=== PATIENT | male | born 2000 | race Caucasian/White ===

== ENCOUNTER 2022-05-26 15:37 | Emergency (ER) | payer OTHER, SELFPAY ==
--- NOTE | ~2022-05-26 | CT_ITS ---
EXAMINATION: CT ABDOMEN AND PELVIS WITH CONTRAST CLINICAL INFORMATION: Right lower quadrant abdominal pain. Rule out appendicitis. COMPARISON: None available. TECHNIQUE: Multidetector volumetric images were obtained from the superior aspect of the liver through the pubic symphysis following administration 85 mL of Omnipaque 350 intravenous contrast. Sagittal and coronal reformatted images were obtained on the technologist's workstation. Oral contrast: No This CT examination was performed using dose optimization techniques as appropriate, variously including the following: *Automated exposure control *Adjustment of mA and/or kV according to patient size (this includes techniques or standardized protocols for targeted exams where dose is matched to indication/reason for exam; i.e. extremities or head) *Use of iterative reconstruction technique DLP: 283 mGy-cm FINDINGS: LUNG BASES: The visualized lung bases are unremarkable. LIVER, GALLBLADDER, AND BILIARY TREE: The liver is normal in size, shape, and attenuation. No focal hepatic lesion or biliary ductal dilatation is present. The gallbladder is unremarkable with no evidence of radiopaque gallstones, gallbladder wall thickening, or obvious pericholecystic inflammatory changes. PANCREAS: Unremarkable. SPLEEN: Unremarkable. ADRENAL GLANDS: Unremarkable. KIDNEYS AND URETERS: The kidneys are normal in size and shape. There is a 3 mm calculus at the right ureterovesical junction which produces mild right hydroureteronephrosis as well as a mildly delayed right nephrogram when compared to the contralateral side. No significant perinephric or periureteral fat stranding. No additional right renal or ureteral calculi are identified. There is a 2 mm calculus within a calyx at the lower pole of the left kidney. BLADDER: Unremarkable. GASTROINTESTINAL TRACT: The small and large bowel are unremarkable. The appendix is unremarkable. No intraperitoneal free air. Trace free fluid, likely physiologic. ABDOMINAL WALL: No significant hernia is appreciated. LYMPH NODES: Normal. VASCULAR: Unremarkable. PELVIC VISCERA: The uterus and adnexa are unremarkable. OSSEOUS STRUCTURES: Unremarkable. CT/CT abdomen pelvis w IV con IMPRESSION: 1. A 3 mm calculus at the right ureterovesical junction produces mild right hydroureteronephrosis and a delayed right nephrogram. 2. A 2 mm nonobstructing calculus in the left kidney. 3. Normal appendix. Fleischner guidelines were followed.
[2022-05-26 15:57] VITALS: BP 120/73; PULSE 71; RESP 18; TEMP 37; O2SAT 96; BMI 19.1
--- NOTE | 2022-05-26 16:00 | ED.ABDPAIN ---
HPI - Abdominal Pain General Chief Complaint: Abdominal Pain Stated Complaint: abdominal pain, vomiting Time Seen by Provider: 05/26/22 17:48 Source: patient Mode of arrival: ambulatory Limitations: no limitations History of Present Illness HPI narrative: This is a 21-year-old transgender patient who presents with right-sided abdominal pain which began today multiple episodes of vomiting with no diarrhea, urinary symptoms, fevers or chills. Related Data Previous Rx's Medication Instructions Recorded cefuroxime axetil 250 mg tablet 250 mg PO BID #14 tabs 05/26/22 ibuprofen 600 mg tablet 600 mg PO Q8H PRN pain #30 tabs 05/26/22 ondansetron 4 mg disintegrating 4 mg PO Q6H PRN nausea and 05/26/22 tablet vomiting #10 tabs oxycodone 5 mg tablet 5 mg PO Q8H PRN pain #5 tabs 05/26/22 tamsulosin 0.4 mg capsule (Flomax) 0.4 mg PO DAILY #30 caps 05/26/22 Allergies Allergy/AdvReac Type Severity Reaction Status Date / Time No Known Allergies Allergy Verified 05/26/22 16:00 Review of Systems Review of Systems Yes all other systems are reviewed and are negative Constitutional: Reports no additional constitutional complaints, Denies body ache(s), Denies chills, Denies fever(s), Denies headache(s) and Denies weakness Eyes: Reports no additional eye complaints and Denies change in vision Reports system reviewed and no additional complaints, except as documented, Denies dizziness, Denies headache(s), Denies nasal congestion, Denies nasal discharge and Denies neck pain Cardiovascular: Reports no additional cardiovascular complaints, Denies chest pain, Denies leg edema and Denies dyspnea Respiratory: Reports no additional respiratory complaints, Denies cough and Denies dyspnea Gastrointestinal: Reports no additional gastrointestinal complaints, Reports abdominal pain, Denies diarrhea, Reports nausea and Reports vomiting Genitourinary: Denies urinary incontinence Musculoskeletal: Reports no additional musculoskeletal complaints, Denies back pain, Denies arthralgias, Denies joint swelling, Denies neck pain, Denies numbness and Denies tingling Skin/Breast: Reports system reviewed and no additional complaints, except as docu and Denies rash Reports system reviewed and no additional complaints, except as documented, Denies dizziness, Denies headache(s), Denies numbness, Denies tingling and Denies weakness [facility] Past Medical History Attestation statement: The following information was validated with the patient. Source: old records reviewed and nursing notes reviewed Social History Social History Alcohol intake: current Alcohol intake frequency: holidays/special occasions only Smoked in Last 30 Days: No Use of substances other than those prescribed or required for medical reasons: No Advance Directives: No Advance Directives Information Provided: No Physical Exam ED Vital Signs: Vital Signs - 24 hr 05/26/22 15:57 05/26/22 19:12 Temperature 98.6 F Pulse Rate 71 66 Respiratory Rate 18 15 Blood Pressure 120/73 131/76 Pulse Oximetry 96 99 Oxygen Delivery Method Room Air Room Air BMI result Body Mass Index 19.1 Const Other: In pain, vomiting Limitations: no limitations HENMT Head: Yes normal to inspection Ears: hearing grossly normal bilaterally Eyes General: appearance normal, both eyes and all related structures Pupils: Equal, round and reactive pupils present Neck Neck: Yes normal visual inspection Chest Chest palpation & inspection: normal inspection of the chest Resp Effort & Inspection: normal respiratory effort GI Inspection: Yes normal to inspection Palpation (GI): Soft to palpation and Tenderness to palpation present (GI) in the RLQ and in the RUQ General: Yes no CVA tenderness Back/Spine/Pelvis Back: no CVA tenderness Thoracic/Lumbar Spine: thoracic and lumbar spine normal to inspection Skin General skin exam: no rashes or lesions noted Neuro General: moves all extremities Cranial nerves: Yes Equal, round and reactive pupils present Cognition (Neuro): normal cognition Gait exam (Neuro): Normal gait present Extrem General: Yes normal to inspection, Yes no pedal edema and Yes no calf tenderness Course Course Course Narrative: This is a rapid medical exam. Deferred additional HPI, ROS, PE to primary provider. 21 yo transgender female to male here with complaints of right sided abdominal pain, nausea/vomiting. Currently on testerone, has female system. Will obtain UA, labs, viral testing. VSS Reevaluation(s) Reevaluation #1: 1930-Labs show leukocytosis. Likely secondary to vomiting. CT of the abdomen and pelvis shows a right 3 mm stone at the UVJ with mild hydroureternephrosis. Patient's nausea is improved. No additional vomiting. Patient still having some discomfort so I will give him Toradol and reassess. UA is pending. Patient will need p.o. trial and if feeling better can be discharged home with Urology follow-up Reevaluation #2: 2020-UA shows mild infection. I do not believe that this patient has an infected stone. His pain is well controlled and he is tolerating water with no additional vomiting. He feels comfortable going home and following up outpatient with Urology. I did review worrisome signs and symptoms with the patient and when to return to the emergency room. Comfortable plan for discharge home. Medical Decision Making Medical Decision Making [facility] Narrative: 21-year-old transgender patient here with right-sided abdominal pain and multiple episodes of vomiting which began today. On exam patient with tenderness the right side of the abdomen with no rebound or guarding. Obtain labs, UA, CT Differential Diagnosis Differential Diagnoses: The differential diagnosis associated with the presentation includes Appendicitis, renal colic, cholecystitis, ovarian torsion Lab Data [facility] Lab Attestation statement: I reviewed the patient's lab results. 05/26/22 16:20 05/26/22 16:20 Labs: Lab Results 05/26/22 05/26/22 05/26/22 Range/Units 16:20 16:20 16:20 WBC 21.5 H (4.8-10.8) X10*3/uL RBC 5.29 (4.60-5.80) X10*6/uL Hgb 15.5 (14.0-18.0) g/dl Hct 44.8 (42.0-52.0) % MCV 84.7 (80.0-98.0) fL MCH 29.3 (27.0-33.0) pg MCHC 34.6 (31.0-36.0) g/dl RDW 11.9 (11.0-16.0) % Plt Count 343 (160-400) X10*3/uL MPV 9.5 (9.4-12.4) fL Immature Gran % (Auto) 0.6 H (0.0-0.4) % Neut % (Auto) 87.6 H (45-73) % Lymph % (Auto) 4.7 L (20-40) % Gaines % (Auto) 6.9 (2-11) % Eos % (Auto) 0.0 (0-4) % Baso % (Auto) 0.2 (0-2) % Lymph # (Auto) 1.0 L (1.2-4.9) X10*3/uL Gaines # (Auto) 1.5 H (0.1-1.2) X10*3/uL Eos # (Auto) 0.0 (0.0-0.4) X10*3/uL Baso # (Auto) 0.1 (0.0-0.2) X10*3/uL Abs Immat Gran (auto) 0.12 H (0.00-0.03) X10*3/uL Absolute Neuts (auto) 18.9 H (2.0-8.3) x10*3/uL Absolute Nucleated RBC 0.000 (0.0-0.012) X10*3/uL Nucleated RBC % (auto) 0.0 (0.0-0.2) /100WBC Sodium 142 (135-145) mmol/L Potassium 4.3 (3.3-5.1) mmol/L Chloride 108 (96-108) mmol/L Carbon Dioxide 21 L (22-29) mmol/L Anion Gap 17 (12-20) BUN 17 H (9-16) mg/dL Creatinine 1.27 (0.5-1.4) mg/dL Estim Creat Clear Calc 68.4 Estimated GFR > 60 Random Glucose 110 (60-115) mg/dL Calcium 10.2 (8.4-10.2) mg/dL Total Bilirubin 0.9 (0.0-1.0) mg/dL Direct Bilirubin 0.3 (0.0-0.5) mg/dL AST 31 (5-37) U/L ALT 18 (0-40) U/L Alkaline Phosphatase 63 (39-117) U/L Total Protein 7.4 (6.5-8.0) g/dL Albumin 5.0 (3.5-5.0) g/dL Urine Color Urine Appearance Urine pH (5.0-9.0) Ur Specific Roy (1.005-1.025) Urine Protein (Neg-Trace) mg/dL Urine Glucose (UA) (Negative) mg/dL Urine Ketones (Negative) mg/dL Urine Blood (Negative) Urine Nitrite (Negative) Ur Leukocyte Esterase (Negative) Urine RBC (0-2) /HPF Urine WBC (0-5) /HPF Ur Squamous Epith Cells (0-2) /HPF Urine Bacteria (None Seen) Hyaline Casts (0-2) /LPF Urine Test (NEGATIVE) COVID-19 (FRANCISCO J) Negative (Negative) COVID-19 Clin Com See Note Ref Lab Test Result 05/26/22 05/26/22 05/26/22 Range/Units 16:20 19:20 19:20 WBC (4.8-10.8) X10*3/uL RBC (4.60-5.80) X10*6/uL Hgb (14.0-18.0) g/dl Hct (42.0-52.0) % MCV (80.0-98.0) fL MCH (27.0-33.0) pg MCHC (31.0-36.0) g/dl RDW (11.0-16.0) % Plt Count (160-400) X10*3/uL MPV (9.4-12.4) fL Immature Gran % (Auto) (0.0-0.4) % Neut % (Auto) (45-73) % Lymph % (Auto) (20-40) % Gaines % (Auto) (2-11) % Eos % (Auto) (0-4) % Baso % (Auto) (0-2) % Lymph # (Auto) (1.2-4.9) X10*3/uL Gaines # (Auto) (0.1-1.2) X10*3/uL Eos # (Auto) (0.0-0.4) X10*3/uL Baso # (Auto) (0.0-0.2) X10*3/uL Abs Immat Gran (auto) (0.00-0.03) X10*3/uL Absolute Neuts (auto) (2.0-8.3) x10*3/uL Absolute Nucleated RBC (0.0-0.012) X10*3/uL Nucleated RBC % (auto) (0.0-0.2) /100WBC Sodium (135-145) mmol/L Potassium (3.3-5.1) mmol/L Chloride (96-108) mmol/L Carbon Dioxide (22-29) mmol/L Anion Gap (12-20) BUN (9-16) mg/dL Creatinine (0.5-1.4) mg/dL Estim Creat Clear Calc Estimated GFR Random Glucose (60-115) mg/dL Calcium (8.4-10.2) mg/dL Total Bilirubin (0.0-1.0) mg/dL Direct Bilirubin (0.0-0.5) mg/dL AST (5-37) U/L ALT (0-40) U/L Alkaline Phosphatase (39-117) U/L Total Protein (6.5-8.0) g/dL Albumin (3.5-5.0) g/dL Urine Color Yellow Urine Appearance Clear Urine pH 8.5 (5.0-9.0) Ur Specific Roy >= 1.030 H (1.005-1.025) Urine Protein Negative (Neg-Trace) mg/dL Urine Glucose (UA) Negative (Negative) mg/dL Urine Ketones Negative (Negative) mg/dL Urine Blood Large (3+) H (Negative) Urine Nitrite Negative (Negative) Ur Leukocyte Esterase Small (1+) H (Negative) Urine RBC >20 H (0-2) /HPF Urine WBC 11-20 H (0-5) /HPF Ur Squamous Epith Cells 3-5 (0-2) /HPF Urine Bacteria Trace (None Seen) Hyaline Casts 0-2 (0-2) /LPF Urine Test NEGATIVE (NEGATIVE) COVID-19 (FRANCISCO J) (Negative) COVID-19 Clin Com Ref Lab Test Result SEE NOTE Independent Interpretation I performed an independent interpretation of an: CT Scan Interpretation: I independently reviewed the CT scan of the abdomen and pelvis to agree with radiologist's report. Radiology Impression Discussion of test interpretation with radiology: I have reviewed the radiologist's reading. Radiologist Impression: FINDINGS: LUNG BASES: The visualized lung bases are unremarkable.? LIVER, GALLBLADDER, AND BILIARY TREE: The liver is normal in size, shape, and attenuation. No focal hepatic lesion or biliary ductal dilatation is present. The gallbladder is unremarkable with no evidence of radiopaque gallstones, gallbladder wall thickening, or obvious pericholecystic inflammatory changes.? PANCREAS: Unremarkable.? SPLEEN: Unremarkable.? ADRENAL GLANDS: Unremarkable.? KIDNEYS AND URETERS: The kidneys are normal in size and shape. There is a 3 mm calculus at the right ureterovesical junction which produces mild right hydroureteronephrosis as well as a mildly delayed right nephrogram when compared to the contralateral side. No significant perinephric or periureteral fat stranding. No additional right renal or ureteral calculi are identified. There is a 2 mm calculus within a calyx at the lower pole of the left kidney.? BLADDER: Unremarkable.? GASTROINTESTINAL TRACT: The small and large bowel are unremarkable. The appendix is unremarkable. No intraperitoneal free air. Trace free fluid, likely physiologic. ABDOMINAL WALL: No significant hernia is appreciated.? LYMPH NODES: Normal. VASCULAR: Unremarkable. PELVIC VISCERA: The uterus and adnexa are unremarkable.? OSSEOUS STRUCTURES: Unremarkable.? CT/CT abdomen pelvis w IV con IMPRESSION: 1.? A 3 mm calculus at the right ureterovesical junction produces mild right hydroureteronephrosis and a delayed right nephrogram. 2.? A 2 mm nonobstructing calculus in the left kidney. 3.? Normal appendix. ? Fleischner guidelines were followed. Medications Administered Discontinued Medications Generic Name Dose Route Start Last Admin Trade Name Freq PRN Reason Stop Dose Admin Sodium Chloride 1,000 mls @ 999 mls/hr 05/26/22 17:49 05/26/22 19:11 Ns IV 05/26/22 18:49 Infused .Q1H1M STA Infusion Iohexol 100 ml 05/26/22 18:25 05/26/22 18:26 Iohexol 350 Mg/Ml 100 Ml Infus..Btl IV 05/26/22 18:26 85 ml ONCE ONE Administration Ketorolac Tromethamine 30 mg 05/26/22 19:30 05/26/22 19:48 Ketorolac Tromethamine 30 Mg/Ml Vial IVPUSH 05/26/22 19:31 30 mg ONCE ONE Administration Morphine Sulfate 4 mg 05/26/22 17:49 05/26/22 18:07 Morphine Sulfate 4 Mg/Ml Cartridge IVPUSH 05/26/22 17:50 4 mg ONCE ONE Administration Protocol Ondansetron HCl 4 mg 05/26/22 17:49 05/26/22 18:07 Ondansetron Hcl 4 Mg/2 Ml Vial IVPUSH 05/26/22 17:50 4 mg ONCE ONE Administration Discharge Plan Discharge Clinical Impression: Calculus of kidney, Acute UTI Patient Disposition: Home, Self-Care Instructions: Kidney Stones (ED) Additional Instructions: You have a kidney stone on the right side. Please follow-up with urology. You do also have a mild urinary tract infection. Increase fluids at home Take the medications as prescribed Return for worsening pain, intractable vomiting, fever greater than 100.4 Prescriptions: New tamsulosin [Flomax] 0.4 mg capsule 0.4 mg PO DAILY Qty: 30 0RF ondansetron 4 mg tablet,disintegrating 4 mg PO Q6H PRN (Reason: nausea and vomiting) Qty: 10 0RF ibuprofen 600 mg tablet 600 mg PO Q8H PRN (Reason: pain) Qty: 30 0RF oxycodone 5 mg tablet 5 mg PO Q8H PRN (Reason: pain) Qty: 5 0RF Rx Instructions: Partial Fill upon patient request. cefuroxime axetil 250 mg tablet 250 mg PO BID Qty: 14 0RF Referrals: Beata Ott MD [Physician] - 1 week Stand Alone Forms: Work/School Release Interventions: ED Discharge Assessment Last Done: 05/26/22 20:27 Discharge Date/Time: 05/26/22 20:30
[2022-05-26 16:26] LABS: MANUAL DIFF FLAG NO
[2022-05-26 16:32] LABS: Basophils Absolute Auto 0.1 X10*3/uL (0.0-0.2); Basophils Percent Auto 0.2 % (0-2); Hematocrit 44.8 % (42.0-52.0); Hemoglobin 15.5 g/dl (14.0-18.0); Imm Gran Abs Auto 0.12 X10*3/uL (0.00-0.03); Imm Gran Pct Auto 0.6 % (0.0-0.4); Lymphocytes Percent Auto 4.7 % (20-40); Mean Corpuscular HGB Conc 34.6 g/dl (31.0-36.0); Mean Corpuscular Hemoglobin 29.3 pg (27.0-33.0); Mean Corpuscular Volume 84.7 fL (80.0-98.0); Mean Platelet Volume 9.5 fL (9.4-12.4); Monocytes Absolute Auto 1.5 X10*3/uL (0.1-1.2); Monocytes Percent Auto 6.9 % (2-11); Neutrophils Absolute Auto 18.9 x10*3/uL (2.0-8.3); Neutrophils Percent Auto 87.6 % (45-73); Platelet Count 343 X10*3/uL (160-400); Red Blood Count 5.29 X10*6/uL (4.60-5.80); Red Cell Distribution Width 11.9 % (11.0-16.0); White Blood Count 21.5 X10*3/uL (4.8-10.8)
[2022-05-26 16:40] LABS: IDNOW Serial# 08D9AD1C
[2022-05-26 16:41] LABS: Alanine Aminotransferase 18 U/L (0-40); Alkaline Phosphatase 63 U/L (39-117); Anion Gap 17 (12-20); Aspartate Amino Transferase 31 U/L (5-37); Bilirubin Direct 0.3 mg/dL (0.0-0.5); Bilirubin Total 0.9 mg/dL (0.0-1.0); Blood Urea Nitrogen 17 mg/dL (9-16); COVID-19 Test Negative (Negative); Calcium 10.2 mg/dL (8.4-10.2); Carbon Dioxide 21 mmol/L (22-29); Chloride 108 mmol/L (96-108); Creatinine Clr Calc Pharmacy 68.4; Estimated Glomerular Filt Rate > 60; Glucose Random 110 mg/dL (60-115); Potassium 4.3 mmol/L (3.3-5.1); Sodium 142 mmol/L (135-145); Total Protein 7.4 g/dL (6.5-8.0)
[2022-05-26] MEDS: ondansetron HCL 4 MG/2 ML VIAL IVPUSH (18:07)
[2022-05-26] MEDS: Morphine Sulfate 4 MG/ML CARTRIDGE IVPUSH (18:07)
[2022-05-26] MEDS: 0.9 % Sodium Chloride 1,000 ML 999 ML IV (18:07)
[2022-05-26] MEDS: iohexoL 350 MG/ML 100 ML INFUS..BTL IV (18:26)
[2022-05-26 19:12] VITALS: BP 131/76; PULSE 66; RESP 15; O2SAT 99
[2022-05-26 19:29] LABS: Appearance Urine Clear; Color Urine Yellow; Glucose Urine UA Negative (Negative); Leukocyte Esterase Urine Small (1+) (Negative); Nitrite Urine Negative (Negative); PH 8.5 (5.0-9.0); UMIC TRIGGER UACC YES; Urine Blood Large (3+) (Negative); Urine Ketones Negative (Negative); Urine Protein Negative (Neg-Trace)
[2022-05-26 19:31] LABS: UPreg QC Valid YES; Urine Pregnancy NEGATIVE (NEGATIVE)
[2022-05-26 19:36] LABS: Bacteria Urine Trace (None Seen); Hyaline Casts Urine 0-2 /LPF (0-2); RBC Urine >20 /HPF (0-2); UACC Culture Trigger YES
[2022-05-26 19:41] LABS: Specific Gravity - Urine >= 1.030 (1.005-1.025)
[2022-05-26] MEDS: Ketorolac Tromethamine 30 MG/ML VIAL IVPUSH (19:48)
== END 2022-05-26 20:30 | disposition home or self-care (01) ==
PROVIDERS: Nurse Practitioner Family; Emergency Provider Internal Medicine
DX: N20.0 Calculus of kidney (principal); N39.0 Urinary tract infection, site not specified; R10.31 Right lower quadrant pain; Z20.822 Contact with and (suspected) exposure to COVID-19; Z20.828 Contact with and (suspected) exposure to other viral communicable diseases; Z79.899 Other long term (current) drug therapy
CPT/HCPCS: 74177; 80048; 80076; 81001; 81025; 85025; 87086; 87635; 96361; 96374; 96375; 99284; J1885; J2270; J2405; Q9967

== ENCOUNTER 2023-05-08 16:42 | Emergency (ER) | payer OTHER, SELFPAY ==
--- NOTE | ~2023-05-08 | XR_ITS ---
EXAMINATION: XR ANKLE, LEFT CLINICAL INFORMATION: Localized pain and swelling lateral malleolus COMPARISON: None available. TECHNIQUE: AP, lateral, and mortise views of the left ankle. FINDINGS: There is soft tissue swelling laterally. No fracture. Alignment is anatomic. No erosions. Joint spaces are maintained. XR/XR ankle LT min 3V IMPRESSION: Soft tissue swelling laterally. No fracture.
--- NOTE | 2023-05-08 17:02 | ED_ITS ---
HPI - Extremity Injury (Lower) General Chief Complaint: Extremity Injury, Lower Stated Complaint: fell, ankle broken? Time Seen by Provider: 05/08/23 18:00 Source: patient Mode of arrival: wheelchair Limitations: no limitations History of Present Illness HPI Narrative: Patient is a 22-year-old who presents to the emergency department for evaluation of Traumatic left ankle pain, reports way sitting on the toilet, felt put to become numb. Upon standing, felt a sudden crack and sudden pain. Has localized swelling to the left lateral malleolus, pain upon palpation. Related Data Previous Rx's Medication Instructions Recorded cefuroxime axetil 250 mg tablet 250 mg PO BID #14 tabs 05/26/22 ibuprofen 600 mg tablet 600 mg PO Q8H PRN pain #30 tabs 05/26/22 ondansetron 4 mg disintegrating 4 mg PO Q6H PRN nausea and 05/26/22 tablet vomiting #10 tabs oxycodone 5 mg tablet 5 mg PO Q8H PRN pain #5 tabs 05/26/22 tamsulosin 0.4 mg capsule (Flomax) 0.4 mg PO DAILY #30 caps 05/26/22 Allergies Allergy/AdvReac Type Severity Reaction Status Date / Time No Known Allergies Allergy Verified 05/08/23 17:02 Review of Systems Review of Systems: Yes all other systems are reviewed and are negative [facility] Past Medical History Attestation statement: The following information was validated with the patient. Source: old records reviewed Social History Social History Alcohol intake: current Alcohol intake frequency: holidays/special occasions only Physical Exam Vital Signs: Vital Signs: Last Vital Signs Temp 98.3 F 05/08/23 17:03 Pulse 67 05/08/23 17:03 Resp 16 05/08/23 17:03 BP 133/54 L 05/08/23 17:03 Pulse Ox 97 05/08/23 17:03 O2 Del Method Room Air 05/08/23 17:03 BMI result Body Mass Index 22.6 Appearance: Alert.?Oriented to person, place and time. No acute distress.?Normal affect. Neck: Normal inspection.? Neck supple.?? CVS: Heart sounds normal. Normal heart rate and rhythm.? Pulses normal.?? Respiratory: No respiratory distress.? Lung sounds clear to auscultation bilaterally?? Abdomen: Soft and non-tender. Normoactive bowel sounds Skin: Skin warm and dry.? Normal skin color.? Extremities: localized swelling L lateral malleolus, no deformity, TTP, 2+ DP/PT Neuro: Moves all extremities spontaneously. Sensation intact bilaterally. Ambulates with antalgic steady gait. Course Course Course Narrative: This is an RME: Additional HPI, ROS, PE not included below will be deferred to primary provider. Patient is a 22-year-old who presents to the emergency department for evaluation of Traumatic left ankle pain, reports way sitting on the toilet, felt put to become numb. Upon standing, felt a sudden crack and sudden pain. Has localized swelling to the left lateral malleolus, pain upon palpation. Plan: XR Medical Decision Making Medical Decision Making [facility] Narrative: Patient is a 22 year old presenting for traumatic L ankle pain as per HPI, lateral malleolus swelling, no obvious deformity, 2+ DP/PT pulse, neurovasculatrly intact distally. XR is without fracture/ dislocation. Consistent with sprains. Advised RICE, OTC analgesics, provided crutches and air cast, outpatient f/u with PCP/ortho if no improvement over next week. Advised ankle sprains can take up to 6 weeks for healing. All questions answered, stable for discharge Differential Diagnosis Differential Diagnoses: The differential diagnosis associated with the presentation includes (facture, disclocation, sprain) Independent Interpretation I performed an independent interpretation of an: Plain X-Ray (no fracture/ dislocation) Radiology Impression Discussion of test interpretation with radiology: I have reviewed the radiologist's reading. Radiologist Impression: XR/XR ankle LT min 3V IMPRESSION: Soft tissue swelling laterally. No fracture. Discharge Plan Discharge Clinical Impression: Ankle sprain Patient Disposition: Home, Self-Care Instructions: Ankle Sprain (ED) Additional Instructions: You can take ibuprofen 200 mg, 3 tablets (600mg) every 6-8 hours as needed for pain, in addition to Tylenol 500 mg, 2 tablets (1,000mg) every 4-6 hours as needed for pain, but not to exceed 3 doses daily (3,000mg).? Air cast and crutches as instructed. Follow-up with PCP Prescriptions: No Action tamsulosin [Flomax] 0.4 mg capsule 0.4 mg PO DAILY Qty: 30 0RF ondansetron 4 mg tablet,disintegrating 4 mg PO Q6H PRN (Reason: nausea and vomiting) Qty: 10 0RF ibuprofen 600 mg tablet 600 mg PO Q8H PRN (Reason: pain) Qty: 30 0RF oxycodone 5 mg tablet 5 mg PO Q8H PRN (Reason: pain) Qty: 5 0RF Rx Instructions: Partial Fill upon patient request. cefuroxime axetil 250 mg tablet 250 mg PO BID Qty: 14 0RF Referrals: Physician,Unknown J [Primary Care Provider] -
[2023-05-08 17:03] VITALS: BP 133/54; PULSE 67; RESP 16; TEMP 36.8; O2SAT 97; BMI 22.6
[2023-05-08 18:46] VITALS: BP 133/54; PULSE 67; RESP 16; TEMP 36.8; O2SAT 97
== END 2023-05-08 18:46 | disposition home or self-care (01) ==
PROVIDERS: Emergency Provider Emergency Medicine Emergency Medical Services
DX: S93.402A Sprain of unspecified ligament of left ankle, initial encounter (principal); X58.XXXA Exposure to other specified factors, initial encounter; Y93.9 Activity, unspecified; Y92.9 Unspecified place or not applicable; Y99.9 Unspecified external cause status
CPT/HCPCS: 73610; 99282; 99283

== ENCOUNTER 2024-05-02 23:11 | Emergency (ER) | payer OTHER, SELFPAY ==
--- NOTE | ~2024-05-02 | CT_ITS ---
CLINICAL HISTORY: abdominal flank pain CT abdomen and pelvis without contrast Comparison: CT - CT ABDOMEN PELVIS W IV CON - 05/26/22 18:25 EDT Findings: Lung bases clear. No free fluid or free air. Normal stomach, small bowel, appendix, and colon. Normal gallbladder, bile ducts, liver, pancreas, spleen, and adrenal glands. Unremarkable kidneys, ureters, and urinary bladder. Uterus and ovaries normal. Bones intact. IMPRESSION: No acute findings. This document has been electronically signed by: Kofi Wolf MD on 05/03/2024 01:25:08
[2024-05-02 23:14] VITALS: BP 126/57; PULSE 78; RESP 18; TEMP 36.8; O2SAT 99; BMI 21.6
[2024-05-02] MEDS: Ondansetron ODT 4 MG TAB.RAPDIS TRANSLINGU (23:20)
[2024-05-02 23:48] LABS: Basophils Absolute Auto 0.1 X10*3/uL (0.0-0.2); Basophils Percent Auto 0.4 % (0-2); Eosinophils Absolute Auto 0.1 X10*3/uL (0.0-0.4); Eosinophils Percent Auto 0.6 % (0-4); Hematocrit 44.6 % (37.0-47.0); Hemoglobin 15.7 g/dl (12.0-16.0); Imm Gran Abs Auto 0.04 X10*3/uL (0.00-0.03); Imm Gran Pct Auto 0.3 % (0.0-0.4); Lymphocytes Absolute Auto 1.7 X10*3/uL (1.2-4.9); Lymphocytes Percent Auto 12.1 % (20-40); MANUAL DIFF FLAG NO; Mean Corpuscular HGB Conc 35.2 g/dl (31.0-35.0); Mean Corpuscular Hemoglobin 29.7 pg (27.0-33.0); Mean Corpuscular Volume 84.3 fL (80.0-98.0); Mean Platelet Volume 9.7 fL (9.4-12.3); Monocytes Absolute Auto 0.8 X10*3/uL (0.1-1.2); Monocytes Percent Auto 5.9 % (2-11); Neutrophils Absolute Auto 11.2 x10*3/uL (2.0-8.3); Neutrophils Percent Auto 80.7 % (45-73); Platelet Count 326 X10*3/uL (160-400); Red Blood Count 5.29 X10*6/uL (4.20-5.50); Red Cell Distribution Width 12.2 % (11.0-16.0); White Blood Count 13.9 X10*3/uL (4.8-10.8)
[2024-05-02 23:50] LABS: Appearance Urine Turbid; Color Urine Yellow; Glucose Urine UA Negative (Negative); Leukocyte Esterase Urine Moderate (2+) (Negative); Nitrite Urine Negative (Negative); PH 6.5 (5.0-9.0); Specific Gravity - Urine 1.025 (1.005-1.025); UMIC TRIGGER UACC YES; Urine Blood Moderate (2+) (Negative); Urine Ketones 15 mg/dL (Negative); Urine Protein Trace mg/dL (Neg-Trace)
[2024-05-02 23:52] LABS: Bacteria Urine Trace (None Seen); Hyaline Casts Urine 0-2 /LPF (0-2); RBC Urine >20 /HPF (0-2); UACC Culture Trigger YES; UPreg QC Valid YES; Urine Pregnancy NEGATIVE (NEGATIVE)
[2024-05-02 23:54] VITALS: BP 126/72; PULSE 67; RESP 18; TEMP 36.8; O2SAT 98
--- NOTE | 2024-05-02 23:57 | MHC.EDTECH ---
this tech assumed care of the pt at this time, VS taken and stable, pt changed over into hospital gown and given call light for saftey. Blood work and urine sample obtained from triage, and pt made no needs aware at this time.
[2024-05-03 00:05] LABS: Alanine Aminotransferase 22 U/L (0-31); Albumin Level 4.7 g/dL (3.5-5.0); Alkaline Phosphatase 71 U/L (39-117); Anion Gap 14 (12-20); Aspartate Amino Transferase 41 U/L (5-31); Bilirubin Total 0.4 mg/dL (0.0-1.0); Blood Urea Nitrogen 18 mg/dL (9-16); Calcium 9.5 mg/dL (8.4-10.2); Carbon Dioxide 22 mmol/L (22-29); Chloride 107 mmol/L (96-108); Creatinine Clr Calc Pharmacy 83.6; Estimated Glomerular Filt Rate > 60; Glucose Random 103 mg/dL (60-115); Lipase 134 U/L (8-78); Potassium 4.2 mmol/L (3.3-5.1); Sodium 139 mmol/L (135-145); Total Protein 7.6 g/dL (6.5-8.0)
[2024-05-03] MEDS: Morphine Sulfate 4 MG/ML CARTRIDGE IVPUSH (01:03)
[2024-05-03] MEDS: 0.9 % Sodium Chloride 1,000 ML 999 ML IV (01:04)
--- NOTE | 2024-05-03 02:37 | ED.GENADULT ---
HPI - General Adult General Chief complaint: Abdominal Pain Stated complaint: abd pain + back pain + vomiting Time Seen by Provider: 05/03/24 00:14 Source: patient Limitations: no limitations History of Present Illness ED Provider: Kaitlin Mejia PA-C HPI narrative: 23-year-old female with a history of kidney stones presents with left Flank pain since earlier this evening. Pain over left mid flank with radiation to left mid abdomen and low back at times. Unable to describe the nature of the discomfort. Associated nausea vomiting initially. Denies dysuria. No diarrhea or fever. Related Data Previous Rx's ?Medication ?Instructions ?Recorded cefuroxime axetil 250 mg tablet 250 mg PO BID #14 tabs 05/26/22 ibuprofen 600 mg tablet 600 mg PO Q8H PRN pain #30 tabs 05/26/22 ondansetron 4 mg disintegrating 4 mg PO Q6H PRN nausea and 05/26/22 tablet vomiting #10 tabs oxycodone 5 mg tablet 5 mg PO Q8H PRN pain #5 tabs 05/26/22 tamsulosin 0.4 mg capsule (Flomax) 0.4 mg PO DAILY #30 caps 05/26/22 cephalexin 500 mg capsule 500 mg PO BID #13 caps 05/03/24 ketorolac 10 mg tablet 10 mg PO Q6H PRN pain #20 tabs 05/03/24 ondansetron HCl 4 mg tablet 4 mg PO Q8H PRN nausea and 05/03/24 vomiting #10 tabs phenazopyridine 200 mg tablet 200 mg PO TID PRN bladder pain #10 05/03/24 (Pyridium) tabs Allergies Allergy/AdvReac Type Severity Reaction Status Date / Time No Known Allergies Allergy Verified 05/02/24 23:16 Review of Systems Review of Systems: Yes all other systems are reviewed and are negative Constitutional: Constitutional: Denies fatigue and Denies fever(s) Cardiovascular: Cardiovascular: Denies chest pain and Denies dyspnea Respiratory: Respiratory: Denies cough and Denies dyspnea Gastrointestinal: Gastrointestinal: Reports abdominal pain, Denies diarrhea, Reports nausea and Reports vomiting Genitourinary: Genitourinary: Denies dysuria and Reports flank pain Endocrine: Endocrine: Denies fatigue PMF Past Medical History Attestation statement: The following information was validated with the patient. Social History Social History Alcohol intake: current Alcohol intake frequency: holidays/special occasions only Smoked in Last 30 Days: No Use of substances other than those prescribed or required for medical reasons: No Advance Directives: No Advance Directives Information Provided: No Do you have a plan to hurt others: No Plan Patient : No Physical Exam ED Vital Signs: Vital Signs - 24 hr 05/02/24 23:14 05/02/24 23:54 Temperature 98.3 F 98.2 F Pulse Rate 78 67 Respiratory Rate 18 18 Blood Pressure 126/57 L 126/72 Pulse Oximetry 99 98 Oxygen Delivery Method Room Air Room Air BMI result Body Mass Index 21.6 Const Other: Alert well-appearing Orientation/consciousness: patient oriented x3 Resp Effort & Inspection: normal respiratory effort Cardio Other: normal peripheral perfusion GI Other: abdomen is soft, nontender nondistended no guarding Skin Other: warm dry no rash Neuro General: patient oriented x3, gait normal, no focal motor deficits and CN's II-XI intact bilaterally Psych Other: cooperative Medications Administered Discontinued Medications Generic Name Dose Route Start Last Admin Trade Name Freq PRN Reason Stop Dose Admin Sodium Chloride 1,000 mls @ 999 mls/hr 05/03/24 01:00 05/03/24 01:04 Ns IV 05/03/24 02:00 999 mls/hr .Q1H1M ANTHONY Administration Morphine Sulfate 4 mg 05/03/24 00:53 05/03/24 01:03 Morphine Sulfate 4 Mg/Ml Cartridge IVPUSH 05/03/24 00:54 4 mg ONCE ONE Administration Protocol Ondansetron HCl 4 mg 05/02/24 23:18 05/02/24 23:20 Ondansetron Odt 4 Mg Tab.Rapdis TRANSLINGU 05/02/24 23:19 4 mg ONCE ONE Administration Medical Decision Making Medical Decision Making MDM Narrative: 23-year-old female with a history of kidney stones presents with left Flank pain since earlier this evening. Pain over left mid flank with radiation to left mid abdomen and low back at times. Unable to describe the nature of the discomfort. Associated nausea vomiting initially. Denies dysuria. No diarrhea or fever. problem: Kidney stones History: Per patient I have considered the following differential diagnoses: Renal colic, pyelonephritis, UTI, diverticulitis Plan: Screening labs including urinalysis were obtained from triage, a CT scan was placed as well. CT pending. Given distribution of discomfort, this could be renal colic, however the patient was well in appearance at this time, perhaps she passed the stone. She has a slight leukocytosis, she is passing white cells and red cells in the urine. Do not think this is pyelo, she does not have a fever she is not actively vomiting. Thought about diverticulitis given left-sided symptoms, however there was no palpable left lower quadrant pain on exam, she has no active GI symptoms at this time. I have independently reviewed the following tests: Labs: Slight leukocytosis, not anemic, no electrolyte abnormality, not , urine appears infected ... Lipase slightly elevated CT abdomen and pelvis:indings: Lung bases clear. No free fluid or free air. Normal stomach, small bowel, appendix, and colon. Normal gallbladder, bile ducts, liver, pancreas, spleen, and adrenal glands. Unremarkable kidneys, ureters, and urinary bladder. Uterus and ovaries normal. Bones intact. IMPRESSION: No acute findings. Lab Data 05/02/24 23:39 05/02/24 23:39 Labs: Lab Results 05/02/24 05/02/24 Range/Units 23:39 23:44 WBC 13.9 H (4.8-10.8) X10*3/uL RBC 5.29 (4.20-5.50) X10*6/uL Hgb 15.7 (12.0-16.0) g/dl Hct 44.6 (37.0-47.0) % MCV 84.3 (80.0-98.0) fL MCH 29.7 (27.0-33.0) pg MCHC 35.2 H (31.0-35.0) g/dl RDW 12.2 (11.0-16.0) % Plt Count 326 (160-400) X10*3/uL MPV 9.7 (9.4-12.3) fL Immature Gran % (Auto) 0.3 (0.0-0.4) % Neut % (Auto) 80.7 H (45-73) % Lymph % (Auto) 12.1 L (20-40) % [place] % (Auto) 5.9 (2-11) % Eos % (Auto) 0.6 (0-4) % Baso % (Auto) 0.4 (0-2) % Lymph # (Auto) 1.7 (1.2-4.9) X10*3/uL [place] # (Auto) 0.8 (0.1-1.2) X10*3/uL Eos # (Auto) 0.1 (0.0-0.4) X10*3/uL Baso # (Auto) 0.1 (0.0-0.2) X10*3/uL Abs Immat Gran (auto) 0.04 H (0.00-0.03) X10*3/uL Absolute Neuts (auto) 11.2 H (2.0-8.3) x10*3/uL Absolute Nucleated RBC 0.000 (0.0-0.012) X10*3/uL Nucleated RBC % (auto) 0.0 (0.0-0.2) /100WBC Sodium 139 (135-145) mmol/L Potassium 4.2 (3.3-5.1) mmol/L Chloride 107 (96-108) mmol/L Carbon Dioxide 22 (22-29) mmol/L Anion Gap 14 (12-20) BUN 18 H (9-16) mg/dL Creatinine 0.95 (0.5-1.4) mg/dL Estim Creat Clear Calc 83.6 Estimated GFR > 60 Random Glucose 103 (60-115) mg/dL Calcium 9.5 D (8.4-10.2) mg/dL Total Bilirubin 0.4 (0.0-1.0) mg/dL AST 41 H (5-31) U/L ALT 22 (0-31) U/L Alkaline Phosphatase 71 (39-117) U/L Total Protein 7.6 (6.5-8.0) g/dL Albumin 4.7 (3.5-5.0) g/dL Lipase 134 H (8-78) U/L Urine Color Yellow Urine Appearance Turbid Urine pH 6.5 (5.0-9.0) Ur Specific [place] 1.025 (1.005-1.025) Urine Protein Trace (Neg-Trace) mg/dL Urine Glucose (UA) Negative (Negative) mg/dL Urine Ketones 15 (Negative) mg/dL Urine Blood Moderate (2+) H (Negative) Urine Nitrite Negative (Negative) Ur Leukocyte Esterase Moderate (2+) H (Negative) Urine RBC >20 H (0-2) /HPF Urine WBC 11-20 H (0-5) /HPF Ur Squamous Epith Cells 3-5 (0-2) /HPF Urine Bacteria Trace (None Seen) Hyaline Casts 0-2 (0-2) /LPF Urine Test NEGATIVE (NEGATIVE) Discharge Plan Discharge Clinical Impression: Pancreatitis, Urinary tract infection Patient Disposition: Home, Self-Care Additional Instructions: the CT scan of the abdomen and pelvis was negative. You had a slight elevation in your lipase, this is an enzyme associated with your pancreas, you have subtle pancreatitis. See home care instructions. You also have evidence of a urinary tract infection. See home care instructions. Uses Zofran as needed for nausea. Use the cephalexin as directed this is an antibiotic to treat the urinary tract infection. If you develop bladder pain, take the Pyridium as needed. Use the ketorolac as needed for your abdominal discomfort in general. Follow up with your primary care provider as needed. Prescriptions: New cephalexin 500 mg capsule 500 mg PO BID Qty: 13 0RF ondansetron HCl 4 mg tablet 4 mg PO Q8H PRN (Reason: nausea and vomiting) Qty: 10 0RF ketorolac 10 mg tablet 10 mg PO Q6H PRN (Reason: pain) Qty: 20 0RF Rx Instructions: maximum total duration of 5 days from all oral, intranasal, or parenteral formulations. The patient received an IV dose of Toradol here in the emergency department. phenazopyridine [Pyridium] 200 mg tablet 200 mg PO TID PRN (Reason: bladder pain) Qty: 10 0RF No Action tamsulosin [Flomax] 0.4 mg capsule 0.4 mg PO DAILY Qty: 30 0RF ondansetron 4 mg tablet,disintegrating 4 mg PO Q6H PRN (Reason: nausea and vomiting) Qty: 10 0RF ibuprofen 600 mg tablet 600 mg PO Q8H PRN (Reason: pain) Qty: 30 0RF oxycodone 5 mg tablet 5 mg PO Q8H PRN (Reason: pain) Qty: 5 0RF Rx Instructions: Partial Fill upon patient request. cefuroxime axetil 250 mg tablet 250 mg PO BID Qty: 14 0RF Stand Alone Forms: Work/School Release Print Language: [place]al[place]
[2024-05-03 02:53] VITALS: BP 121/55; PULSE 74; RESP 16; TEMP 36.6; O2SAT 97
[2024-05-03] MEDS: Ketorolac Tromethamine 15 MG/ML VIAL IVPUSH (02:56)
[2024-05-03] MEDS: cephALEXin 500 MG CAPSULE PO (02:56)
[2024-05-03 03:02] VITALS: BP 118/65; PULSE 74; RESP 16; TEMP 36.6; O2SAT 97
== END 2024-05-03 03:09 | disposition home or self-care (01) ==
PROVIDERS: Emergency Provider Emergency Medicine; PCP Nurse Practitioner
DX: K85.90 Acute pancreatitis without necrosis or infection, unspecified (principal); N39.0 Urinary tract infection, site not specified; R10.9 Unspecified abdominal pain; R11.2 Nausea with vomiting, unspecified; Z87.442 Personal history of urinary calculi; Z79.899 Other long term (current) drug therapy
CPT/HCPCS: 36415; 74176; 80053; 81001; 81025; 83690; 85025; 87086; 96374; 96375; 99284; J1885; J2270

== ENCOUNTER → 2024-05-03 00:15 | Outpatient (BNV) | payer OTHER, SELFPAY | PROVIDERS: Emergency Provider Emergency Medicine; PCP Nurse Practitioner; Visit Provider Radiology Diagnostic Radiology | DX: R10.2 Pelvic and perineal pain (principal); M54.50 Low back pain, unspecified | CPT/HCPCS: 74176 ==

== ENCOUNTER 2024-05-04 21:04 | Emergency (ER) | payer OTHER, SELFPAY ==
[2024-05-04 21:08] VITALS: BP 133/76; PULSE 73; RESP 17; TEMP 36.9; O2SAT 98; BMI 22.3
[2024-05-04 21:37] LABS: MANUAL DIFF FLAG NO
[2024-05-04 21:39] LABS: Basophils Absolute Auto 0.1 X10*3/uL (0.0-0.2); Basophils Percent Auto 0.5 % (0-2); Eosinophils Absolute Auto 0.2 X10*3/uL (0.0-0.4); Eosinophils Percent Auto 1.7 % (0-4); Hematocrit 44.6 % (37.0-47.0); Hemoglobin 15.3 g/dl (12.0-16.0); Imm Gran Abs Auto 0.04 X10*3/uL (0.00-0.03); Imm Gran Pct Auto 0.3 % (0.0-0.4); Lymphocytes Absolute Auto 1.9 X10*3/uL (1.2-4.9); Lymphocytes Percent Auto 15.2 % (20-40); Mean Corpuscular HGB Conc 34.3 g/dl (31.0-35.0); Mean Corpuscular Hemoglobin 29.8 pg (27.0-33.0); Mean Corpuscular Volume 86.8 fL (80.0-98.0); Monocytes Absolute Auto 1.1 X10*3/uL (0.1-1.2); Neutrophils Absolute Auto 9.1 x10*3/uL (2.0-8.3); Neutrophils Percent Auto 73.3 % (45-73); Platelet Count 289 X10*3/uL (160-400); Red Blood Count 5.14 X10*6/uL (4.20-5.50); Red Cell Distribution Width 11.9 % (11.0-16.0); White Blood Count 12.4 X10*3/uL (4.8-10.8)
[2024-05-04 21:52] LABS: Alanine Aminotransferase 12 U/L (0-31); Albumin Level 4.6 g/dL (3.5-5.0); Alkaline Phosphatase 69 U/L (39-117); Anion Gap 9 (12-20); Aspartate Amino Transferase 31 U/L (5-31); Bilirubin Total 0.5 mg/dL (0.0-1.0); Blood Urea Nitrogen 14 mg/dL (9-16); Calcium 9.3 mg/dL (8.4-10.2); Carbon Dioxide 28 mmol/L (22-29); Chloride 108 mmol/L (96-108); Creatinine Clr Calc Pharmacy 58.3; Estimated Glomerular Filt Rate 49; Glucose Random 89 mg/dL (60-115); Lipase 90 U/L (8-78); Potassium 4.2 mmol/L (3.3-5.1); Sodium 141 mmol/L (135-145); Total Protein 7.1 g/dL (6.5-8.0)
[2024-05-05 00:45] VITALS: BP 133/72; PULSE 68; RESP 16; TEMP 36.6; O2SAT 97
[2024-05-05 01:55] VITALS: BP 117/63; PULSE 62; RESP 16; TEMP 36.8; O2SAT 95
--- NOTE | 2024-05-05 06:06 | ED.ABDPAIN ---
HPI - Abdominal Pain General Chief Complaint: Abdominal Pain Stated Complaint: Abd pain Time Seen by Provider: 05/05/24 06:05 Source: patient Mode of arrival: ambulatory Limitations: no limitations History of Present Illness ED Provider: Dr. Jim Orta HPI narrative: 23-year-old transgender male with a who presents emergency department for evaluation of nausea, vomiting, left abdominal and left flank pain. Patient states that his pain started on 05/01/2024 (2 days prior). Patient came on suddenly and the patient was seen here in the emergency department for that pain. The patient had an elevated lipase and a urinalysis which was concerning for urinary tract infection. CT scan of the abdomen pelvis did not reveal a clear cause for the patient's pain at that time. Patient was discharged home with a prescription for Keflex 500 mg b.i.d., Zofran, ketorolac and Pyridium. He states that he was pain did not improve. He states that the left side in his abdomen became swollen he states that he was pain is an intermittent, sharp pain associated nausea and vomiting. He was not been able to eat or drink food since onset of the pain. Review of systems positive for fever and chills. Review of systems were negative for rhinorrhea, sore throat, cough, chest pain, shortness of breath, frequency or dysuria. Related Data Previous Rx's ?Medication ?Instructions ?Recorded cefuroxime axetil 250 mg tablet 250 mg PO BID #14 tabs 05/26/22 ibuprofen 600 mg tablet 600 mg PO Q8H PRN pain #30 tabs 05/26/22 ondansetron 4 mg disintegrating 4 mg PO Q6H PRN nausea and 05/26/22 tablet vomiting #10 tabs oxycodone 5 mg tablet 5 mg PO Q8H PRN pain #5 tabs 05/26/22 tamsulosin 0.4 mg capsule (Flomax) 0.4 mg PO DAILY #30 caps 05/26/22 cephalexin 500 mg capsule 500 mg PO BID #13 caps 05/03/24 ketorolac 10 mg tablet 10 mg PO Q6H PRN pain #20 tabs 05/03/24 ondansetron HCl 4 mg tablet 4 mg PO Q8H PRN nausea and 05/03/24 vomiting #10 tabs phenazopyridine 200 mg tablet 200 mg PO TID PRN bladder pain #10 05/03/24 (Pyridium) tabs morphine 15 mg immediate release 15 mg PO Q8H PRN pain #10 tabs 05/05/24 tablet Allergies Allergy/AdvReac Type Severity Reaction Status Date / Time No Known Allergies Allergy Verified 05/04/24 21:09 Review of Systems Review of Systems Yes all other systems are reviewed and are negative [facility] Past Medical History [facility] Narrative: Social history: The patient denies tobacco use. Occasionally drinks alcohol. Denies drug use. Social History Social History Alcohol intake: current Alcohol intake frequency: holidays/special occasions only Smoked in Last 30 Days: No Use of substances other than those prescribed or required for medical reasons: No Advance Directives: No Advance Directives Information Provided: Yes Do you have a plan to hurt others: No Plan Patient : No Physical Exam ED Vital Signs: Vital Signs - 24 hr 05/04/24 21:08 05/05/24 00:45 05/05/24 01:55 Temperature 98.5 F 97.8 F 98.2 F Pulse Rate 73 68 62 Respiratory Rate 17 16 16 Blood Pressure 133/76 133/72 117/63 Pulse Oximetry 98 97 95 Oxygen Delivery Method Room Air Room Air Room Air BMI result Body Mass Index 22.3 Vital signs were normal Exam: General: Awake, alert in no distress Head: Normocephalic, atraumatic EENT: PERRL, Lids normal, sclera normal, conjunctiva normal, nose normal , ears normal, throat without erythema or exudates Neck: Supple, no adenopathy Lung: breath sounds symmetric, no wheezing, rales or rhonchi Chest: symmetric movement, nontender Heart: regular rate and rhythm, normal S1, S2 no murmurs or rubs Abdomen: soft, distention, normoactive bowel sounds, patient moderate tenderness of his left upper and left lower quadrants, no rebound, no voluntary or involuntary guarding Back: no vertebral tenderness, mild to moderate left-sided CVA tenderness Extremities: no deformities, moves all extremities symmetrically Neuro: Awake, alert, oriented, normal speech, cranial nerves intact, moves all extremities symmetrically Psych: Pleasant, cooperative Medical Decision Making Medical Decision Making MDM Narrative: 23-year-old transgender male with a who presents emergency department for evaluation of nausea, vomiting, left abdominal and left flank pain since 05/03/2024. Patient was seen in the ED on 05/03/2024 diagnosed with pancreatitis and urinary tract infection, discharged on Keflex, ketorolac, Pyridium and Zofran with no improvement of his symptoms. He states that his pain has been intermittent but he was severe 10/10, with left abdominal swelling. Patient was not been able to eat or drink x2 days. Chills. He was had persistent nausea. Patient was urine culture from 2 days prior grew mixed adela. Vital signs were normal. Exam did reveal left sided abdominal tenderness with left CVA tenderness but no rebound, no voluntary or involuntary guarding. Differential diagnosis: ?Includes but is not limited to viral syndrome, pancreatitis, diverticulitis, infection, pyelonephritis, anemia, electrolyte abnormality Course: 06:43 Interpretation patient's laboratory evaluation is as follows: WBC elevated 12,400. CMP was normal. Lipase was slightly elevated at 90 but down from 134 at the previous visit. Urine from 2 days prior was negative. At this time, I do not have a clear etiology for the patient's pain. I do not think that the tract infection/pyelonephritis or pancreatitis. I did discuss this with the patient. The patient was treated with normal saline IV times ketorolac 15 mg IV and ondansetron 4 mg IV. Patient will get repeat doses of morphine to try to get his pain down to a tolerable level. Patient was then be discharged home with prescription for morphine IR 15 mg every 6 hours as needed for pain. He was advised to continue taking the ketorolac ondansetron he was visit. He was told to stop the Pyridium and the Keflex since I do not think that he was a urinary tract infection based on his urine culture your Admission/Observation Consideration of admission/observation: Escalation of care including admission/observation considered (Yes) Lab Data MDM Lab Attestation statement: I reviewed the patient's lab results. 05/04/24 21:34 05/04/24 21:34 Labs: Lab Results 05/04/24 Range/Units 21:34 WBC 12.4 H (4.8-10.8) X10*3/uL RBC 5.14 (4.20-5.50) X10*6/uL Hgb 15.3 (12.0-16.0) g/dl Hct 44.6 (37.0-47.0) % MCV 86.8 (80.0-98.0) fL MCH 29.8 (27.0-33.0) pg MCHC 34.3 (31.0-35.0) g/dl RDW 11.9 (11.0-16.0) % Plt Count 289 (160-400) X10*3/uL MPV 9.0 L (9.4-12.3) fL Immature Gran % (Auto) 0.3 (0.0-0.4) % Neut % (Auto) 73.3 H (45-73) % Lymph % (Auto) 15.2 L (20-40) % [place] % (Auto) 9.0 (2-11) % Eos % (Auto) 1.7 (0-4) % Baso % (Auto) 0.5 (0-2) % Lymph # (Auto) 1.9 (1.2-4.9) X10*3/uL [place] # (Auto) 1.1 (0.1-1.2) X10*3/uL Eos # (Auto) 0.2 (0.0-0.4) X10*3/uL Baso # (Auto) 0.1 (0.0-0.2) X10*3/uL Abs Immat Gran (auto) 0.04 H (0.00-0.03) X10*3/uL Absolute Neuts (auto) 9.1 H (2.0-8.3) x10*3/uL Absolute Nucleated RBC 0.000 (0.0-0.012) X10*3/uL Nucleated RBC % (auto) 0.0 (0.0-0.2) /100WBC Sodium 141 (135-145) mmol/L Potassium 4.2 (3.3-5.1) mmol/L Chloride 108 (96-108) mmol/L Carbon Dioxide 28 (22-29) mmol/L Anion Gap 9 L (12-20) BUN 14 (9-16) mg/dL Creatinine 1.36 (0.5-1.4) mg/dL Estim Creat Clear Calc 58.3 Estimated GFR 49 Random Glucose 89 (60-115) mg/dL Calcium 9.3 (8.4-10.2) mg/dL Total Bilirubin 0.5 (0.0-1.0) mg/dL AST 31 (5-31) U/L ALT 12 (0-31) U/L Alkaline Phosphatase 69 (39-117) U/L Total Protein 7.1 (6.5-8.0) g/dL Albumin 4.6 (3.5-5.0) g/dL Lipase 90 H (8-78) U/L Independent Historian Clinical information obtained from an independent historian. History obtained from or confirmed by: Friend Prescription Management I considered prescription management with: Pain Medication (Morphine) Discharge Plan Discharge Clinical Impression: Abdominal pain, Acute left flank pain Patient Disposition: Home, Self-Care Instructions: Abdominal Pain (ED) Additional Instructions: Your blood work was unremarkable. Your urine culture from 2 days prior did not grow a significant bacteria therefore I do not think that you have a urinary tract infection as the cause of your pain. Your lipase (marker for pancreatitis) was 134 two days ago and is 90 today which is reassuring. The upper limit of normal for lipase is 80 . Unusually for pancreatitis the lipase should be at least 4 times the upper limit and usually is in the 400 to 1000 range. At this time I do not have a clear cause for your pain but given your blood work today and a normal CT scan from 2 days, I do not think that you need to be admitted to the hospital and that we need to just treat your pain as an outpatient and hopefully goes away in several days. Stop taking the cephalexin and Pyridium. Continue taking Zofran (ondansetron) as prescribed) Continue taking the ketorolac as prescribed Take Tylenol (acetaminophen) 2 pills every 6 hours as needed for pain. For pain not relieved by ketorolac or Tylenol take morphine 15 mg pills, 1 pill every 6 hours as needed for pain. This medication will make you sleepy, do not drive or work while taking this medication. Morphine is a narcotic medication and can be addicting. If you are concerned about addiction you can ask the pharmacist for less pills or do not get this prescription filled. Follow-up with your doctor in 2 days. Please return to the emergency department if your symptoms get worse or if you develop any symptoms that are concerning to you. Prescriptions: New morphine 15 mg tablet 15 mg PO Q8H PRN (Reason: pain) Qty: 10 0RF Rx Instructions: Partial Fill upon patient request. No Action tamsulosin [Flomax] 0.4 mg capsule 0.4 mg PO DAILY Qty: 30 0RF ondansetron 4 mg tablet,disintegrating 4 mg PO Q6H PRN (Reason: nausea and vomiting) Qty: 10 0RF ibuprofen 600 mg tablet 600 mg PO Q8H PRN (Reason: pain) Qty: 30 0RF oxycodone 5 mg tablet 5 mg PO Q8H PRN (Reason: pain) Qty: 5 0RF Rx Instructions: Partial Fill upon patient request. cefuroxime axetil 250 mg tablet 250 mg PO BID Qty: 14 0RF cephalexin 500 mg capsule 500 mg PO BID Qty: 13 0RF ondansetron HCl 4 mg tablet 4 mg PO Q8H PRN (Reason: nausea and vomiting) Qty: 10 0RF ketorolac 10 mg tablet 10 mg PO Q6H PRN (Reason: pain) Qty: 20 0RF Rx Instructions: maximum total duration of 5 days from all oral, intranasal, or parenteral formulations. The patient received an IV dose of Toradol here in the emergency department. phenazopyridine [Pyridium] 200 mg tablet 200 mg PO TID PRN (Reason: bladder pain) Qty: 10 0RF Print Language: [place]
[2024-05-05 06:34] VITALS: BP 114/65; PULSE 62; RESP 16; TEMP 36.7; O2SAT 96
[2024-05-05] MEDS: ondansetron HCL 4 MG/2 ML VIAL IVPUSH ×2 (06:39→09:12)
[2024-05-05] MEDS: Morphine Sulfate 4 MG/ML CARTRIDGE IVPUSH ×3 (06:39→09:13)
[2024-05-05] MEDS: Ketorolac Tromethamine 15 MG/ML VIAL IVPUSH (06:40)
[2024-05-05] MEDS: 0.9 % Sodium Chloride 1,000 ML 999 ML IV (06:40)
--- NOTE | 2024-05-05 07:36 | PC.NURSE ---
Pt reports improved LLQ pain 6/10 and denies nausea
[2024-05-05 08:30] VITALS: BP 119/63; PULSE 65; RESP 16; TEMP 36.7; O2SAT 98
[2024-05-05 10:08] VITALS: BP 109/56; PULSE 66; RESP 16; TEMP 36.6; O2SAT 98
== END 2024-05-05 10:09 | disposition home or self-care (01) ==
PROVIDERS: Emergency Provider Emergency Medicine Emergency Medical Services; PCP Nurse Practitioner
DX: R10.32 Left lower quadrant pain (principal); R11.2 Nausea with vomiting, unspecified; R10.2 Pelvic and perineal pain; Z79.899 Other long term (current) drug therapy
CPT/HCPCS: 36415; 80053; 83690; 85025; 96361; 96374; 96375; 96376; 99284; J1885; J2270; J2405